=== PATIENT | male | born 1990 | race Native Hawaiian/Other Pacific Islander ===

== ENCOUNTER → 2018-01-26 | Outpatient (CLI) | payer OTHER ==
--- NOTE | 2018-01-27 05:50 | PAP/PSG TECHNICIAN REPORT ---
[facility] Operator Coating Furnace Polysomnogram Report Study name: None Report date: 01/27/2018 Study date: 01/26/2018 Referring Physician: Dr.Michael Uribe Name: TRENT PAZ Interpreting Physician: Omero Pires M.D. Date of : 1990 Operator Coating Furnace: Yahaira Nguyen [facility]. Sex: Male Age: 27 StudyType: PSG Weight: 239 lbs Height: 27 years, Height 6' 3" BMI: 29.87 Medications: Fluticasone Propionate 50 MCG, Cetirizine 10 mg Patient History 27 yr. old male here for a diagnostic sleep study. Patient complains of gasping for air and loud snoring. ESS 09/23. Parameters Monitored NPSG: E1-M2, E2-M1, Fp1-M2, Fp2-M1, F3-M2, F4-M2, F4-M1, C3-M2, C4-M2, C4-M1, O1-M2, O2-M2, O2-M1, T3-M2, T4-M1, P3-M2, P4-M1, CHIN1, CHIN2, HR, EKG, Legs, PFLOW, SNOR, FLOW, CFLOW, Tidal Volume, THOR, ABDO, SpO2, PLTH, CPRESS, ETCO2 Wave, ETCO2, pH Sleep Architecture Sleep Stages Time at Lights Off 10:35:01 PM STAGES Time (min.) TST (%) Time at Lights On 5:37:01 AM Wake 128.5 -- Total Recording Time (TRT) 422.00 min. N1 18.0 6 Total Sleep Period (TSP) 414.5 min. N2 201.0 68 Total Sleep Time (TST) 293.5min. N3 31.0 11 Awake Time 128.5 min. REM 43.5 15 Wake after Sleep Onset 121.0 min. Sleep Efficiency (SE) 70 % Sleep Onset Latency (ALFREDO) 7.5 min. Number of Stage 1 Shifts None Awakenings 20 Stage Changes 73 Number of REM periods 2 REM 43.5 15 REM Latency 244.0 min. NREM 250.0 85 Body Position Analysis Supine Right Left Side Prone Vertical Total Sleep Time (min.) 126.1 206.3 0.0 206.25 0.0 0.0 Total Sleep Time (%) 30% 70% 0% 70 0% N/A% Total Sleep Time REM (min.) 0.0 43.5 0.0 None 0.0 0.0 Total Sleep Time NREM (min.) 87.2 162.8 0.0 None 0.0 0.0 Intermittent Wake (min.) 38.9 77.9 11.7 None 0.0 0.0 Total Sleep Period (%) 29% None None None None None Arousals Myoclonus (PLM) * Events Count Index Events Count Index Spontaneous 7 1 Events Awake (PLMW) 216 100.9 Respiratory 0 0.2 Events Asleep w/ Arousal (PLMA) 15 3.1 PLM 15 3 Events Asleep w/o Arousal (PLMS) 100 20.4 Snoring 2 0 Total Asleep 115 23.5 Total 24 5 Total 331 47 Respiratory Analysis * CA OA MA CH H RERA Total Count 0 0 0 0 9 0 9 Index 0.0 0.0 0.0 0 1.8 0 1.8 Mean Duration 0.0 0.0 0.0 0.00 25.0 0.0 25.0 Longest Duration 0.0 0.0 0.0 0.00 0.0 0.0 50.0 Respiratory Event Summary Total Supine ~Supine Right Left Prone REM NREM Apneas Count 0 0 0 0 N/A N/A 0 0 Index 0.0 0 0 0.0 N/A N/A 0 0 Hypopneas (4% Desat) Count 9 9 0 0 N/A N/A 0 9 Index 1.8 6.2 0 0.0 N/A N/A 0.0 2.2 Apneas & All Hypopneas Count 9 9 0 0 N/A N/A 0 9 Index 1.8 6 0 0 N/A N/A 0.0 2.2 Respiratory Events (Telescope Operator+All Hyp+RERA) Count 9 9 0 0 N/A N/A 0 9 Index 1.8 6 0 0.0 N/A N/A 0.0 2.2 Respiratory Related Arousal Count 0 9 0 0 N/A N/A 0 1 Index 0.2 1 0 0 N/A N/A 0 0 Snoring Analysis Supine Right Left Prone REM NREM Total Snore duration 6.3 min Snores count 102 215 N/A N/A 2 315 317 Snore mean duration 1.2 Sec Snores index 70 63 N/A N/A 2.8 75.6 64.8 TST with snoring (%) 2.2% Desaturation Event Summary: Minimum %SpO2 Event Count Mean/Min/Max Duration(sec.) Desaturation Index % Time In Bed > 90 14 25.3 / 5.8 / 57.3 2.0 100.0 86 - 90 0 N/A 0.0 0.0 81 - 85 0 N/A 0.0 0.0 76 - 80 0 N/A 0.0 0.0 71 - 75 0 N/A 0.0 0.0 66 - 70 0 N/A 0.0 0.0 61 - 65 0 N/A 0.0 0.0 56 - 60 0 N/A 0.0 0.0 51 - 55 0 N/A 0.0 0.0 < 50 0 N/A 0.0 0.0 Total REM NREM Awake <50% 0.0 min. 0.0 min. 0.0 min. 0.0 min. 51 - 60% 0.0 min. 0.0 min. 0.0 min. 0.0 min. 61 - 70% 0.0 min. 0.0 min. 0.0 min. 0.0 min. 71 - 80% 0.0 min. 0.0 min. 0.0 min. 0.0 min. 81 - 90% 0.1 min. 0.0 min. 0.0 min. 0.1 min. 91 - 100% 413.3 min. 43.5 min. 250.0 min. 119.8 min. Average 95 95 95 96 Minimum SpO2 89 92 91 89 Desaturation Event Index 2.0 0.0 1.4 3.7 # Desat. Events below 89% N/A N/A N/A N/A Time(%) with Saturation below 89% 0.0 0.0 0.0 0.0 Time(min.) with Saturation below 89% 0.0 0.0 0.0 0.0 Time (mins) REM (mins) NREM (mins) % of TST SpO2 Below 90% N/A N/A NN/A 0.0 SpO2 Below 88% 0 0 0 0 Heart Rate Analysis Min (bpm) Max (bpm) Average (bpm) Awake 48 108 69 NREM 47 98 57 REM 52 86 62 Overall 47 98 58 Supplemental O2 Values Minimum O2 level: None Value Start Time End Time Operator [employer] Furnace Comments Ermias LANDIS slept in the right, left, and supine positions. No cardiac arrhythmia. PLMs noted. No bruxism noted. Snoring was noted and scored as a 3 on a scale of 0 through 5. (0=no snoring, 5=snoring loud enough to be heard through a closed door or down the amaya way) Ermias LANDIS awoke to use the restroom two times during the night. Ermias LANDIS stated, I feel like I was up a lot. The final report will be interpreted and signed by a sleep physician. The completed physician report will then be placed in the patient medical record. Therapy (cm H2O) 0 TIB (min.) 422.0 TST (min.) 293.5 Sleep Onset (min.) 7.5 REM Onset From Sleep (min.) 244.0 Sleep Efficiency % 70 Wakefulness (%) 30 Wakefulness (min.) 128.5 NREM 1 (%) 6 NREM 1 (min.) 18.0 NREM 2 (%) 68 NREM 2 (min.) 201.0 NREM 3 (%) 11 NREM 3 (min.) 31.0 REM (%) 15 REM (min.) 43.5 # Arousals 24 Arousal Index 5 # Snore 317 Snore Index 64.8 AHI 1.8 AHI Supine 6 AHI Non-Supine 0 NREM AHI 2.2 REM AHI 0.0 RDI 1.8 # Obstructive Apnea 0 # Central Apnea 0 # Mixed Apnea 0 # Hypopneas 9 RERAs 0 Total Respiratory Events 10 Time Below SpO2 89% (min.) 0.0 Mean NREM SpO2 (%) 95 Mean REM SpO2 (%) 95 Mean Sleep SpO2 (%) 95 Min NREM SpO2 (%) 91 Min REM SpO2 (%) 92 Position Supine (min.) 126.1 Position Non-supine (min.) 206.3 LM Index Sleep 23.5 LM Index NREM 23.8 LM Index REM 22.1 Mean Heart Rate (bpm) 58 Min Heart Rate (bpm) 47
== END | disposition home or self-care (01) ==
LOC: C.NEUR 20:00
PROVIDERS: ATTEND Family Medicine
DX: G47.30 Sleep apnea, unspecified (principal)